=== PATIENT | female | born 1970 | race Caucasian/White ===

== ENCOUNTER 2025-08-14 09:14 | Emergency (ER) | payer BC, MEDICAID ==
[~2025-08-14] VITALS: Ht 152.4 cm; Wt 61.4 kg
[2025-08-14 09:18] VITALS: TEMP 97.1
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
[2025-08-14] MEDS ORDERED: CYCL-1 PO (10:29)
[2025-08-14 10:54] VITALS: BP 134/98; PULSE 79; RESP 16; O2SAT 99
== END 2025-08-14 10:57 | disposition home or self-care (01) ==
LOC: ER 09:16
DX: M77.11 Lateral epicondylitis, right elbow (principal)
CPT/HCPCS: 99283